=== PATIENT | female | born 1985 ===

== ENCOUNTER → 2018-07-31 | Outpatient (CLI) | payer SELFPAY ==
[2018-07-31 19:16] LABS: ANION GAP 14.6; CHLORIDE,CL 99 mmol/L (101-111); SODIUM,NA 137 mmol/L (135-145)
== END ==
LOC: DL.CLIN 01:40
PROVIDERS: ATTEND Physician Assistant Medical
DX: E11.9 Type 2 diabetes mellitus without complications (principal)
CPT/HCPCS: 80053; 83036; 85025